=== PATIENT | female | born 1975 | race Caucasian/White ===

== ENCOUNTER 2016-08-17 07:30 | Inpatient (IN) | payer OTHER ==
--- NOTE | ~2016-08-17 | BMI ---
[facility] Nutrition Therapy DATE: 08/18/16 Patient: JUSTINA MENDEZ Physician: JOSE MARIA Address: [address] [place] [address] Room/Bed: [address] [place] [address], [facility], Zip: [place] [address] Admit Date: 08/17/16 Date of : [birth year] Height: 5 2 Weight: 277 125.8 HIGH BMI NOTE: DX: 41 y/o female admitted with COPD exacerbation ANTHROPOMETRICS: Ht: 62", Wt: 277 lbs, BMI: 53 DIET: Regular INTERVENTION: 1. Restricted diet, 2. Meds/fluids per MD RECOMMENDATIONS: Consider changing diet to healthy heart to promote a gradual weight loss towards a healthy BMI range. Respectfully, Annette Pina RD, LD [employer] [facility] [employer] [facility] cc: client file
--- NOTE | ~2016-08-17 | CR72 ---
[facility] A Service of [facility] RADIOLOGY TEXT RESULTS PATIENT: JUSTINA MENDEZ LOCATION: [place] [id number] : [birth year] UNIT #: [id number] AGE: [address]: Fred Jean MD SEX: F ORDER DR: [id number] [facility] [address] [facility]. [place], [place] [address] [id number] I MR#: [id number] Acc #: [id number] NAME: JUSTINA MENDEZ : 1975 SEX: F STUDY DATE/TIME: 08/17/2016 6:54 UNIT: CEDOF ROOM: 54887 STUDY DESCRIPTION: CR Chest Single View Portable Attending Physician: Elio Jean M.D. Ordering Physician: Vadim Guallpa D.O. Primary Care Physician: No Primary Care Physician MEDICAL IMAGING REPORT This report is preliminary unless electronic signature is present EXAM AP portable chest 08/17/2016 HISTORY 41-year-old female in the ED complaining of 2-day history of shortness of air, cough and body aches. TECHNIQUE AP portable chest x-ray. FINDINGS Heart size and pulmonary vascularity are normal. The lungs are expanded and clear. No visible pulmonary infiltrate or pleural effusion. No change since 04/09/2016. IMPRESSION No active disease. No change since 04/09/2016. Dictated by... Scott Barton M.D. THIS IS AN ELECTRONICALLY VERIFIED REPORT Scott Barton M.D. at 08/17/2016 4:12 PM RIRI/sanket TD: 08/17/2016 11:01 JOB #: [id number] MEDICAL IMAGING REPORT COPY
--- NOTE | ~2016-08-17 | HP ---
Unit #: [id number] #: [id number] Patient: ALEXANDRIA MENDEZ [id number] [address] [place], [place] [address] [id number] I MR#: [id number] NAME: ALEXANDRIA MENDEZ ROOM: 16037 Age: 41 Sex: F Admission Date: 08/17/2016 : 1975 Attending Physician: Elio Jean M.D. Primary Care Physician: No Primary Care Physician HISTORY AND PHYSICAL HISTORY OF PRESENT ILLNESS Ms. Alexandria Mendez is a lady who sees us in the office. She has a history of COPD and LAVINIA. Patient presents with two days of persistent sore throat, productive cough, worsening dyspnea. Muscle aches and pains are better, just sinus pain. There is sore throat. There is coughing, sneezing. She has clear drainage from the upper respiratory tract and she is coughing stuff from the lower respiratory tract. The patient is feeling dizzy and has sinus issues; however, there is no significant other symptoms. REVIEW OF SYSTEMS A 12-point review of systems is as above. PAST MEDICAL HISTORY 1. Obstructive sleep apnea. 2. Mathis's palsy. 3. History of transient ischemic episodes. PAST SURGICAL HISTORY 1. Tonsillectomy. 2. Tubal ligation. ALLERGIES The patient has no known medical allergies. HOME MEDICATIONS 1. Albuterol sulfate neb 3 mL every four hours as needed. 2. Aspirin 81 mg daily. FAMILY HISTORY Noncontributory. SOCIAL HISTORY The patient is a nondrinker, nonpolysubstance user. However, is a smoker and had quit approximately six years ago and restarted this year. PHYSICAL EXAMINATION VITAL SIGNS: Blood pressure 146/77, heart rate 96, respiratory rate 16, temperature 98.1. HEENT: Extraocular movements are intact. CHEST: Clear to auscultation bilaterally. CARDIOVASCULAR: Regular rate. No gallop. ABDOMEN: Soft, nontender, nondistended. EXTREMITIES: Shows +1, +2 edema. Unit #: [id number] #: [id number] Patient: ALEXANDRIA MENDEZ DIAGNOSTIC STUDIES LABORATORY: The laboratory data shows no significant leukocytosis. There is also no evidence of renal insufficiency. IMAGING: The chest x-ray shows no evidence of disease and some chronic changes. CARDIOVASCULAR: The EKG shows normal sinus rhythm. ASSESSMENT 1. History of asthma. 2. Acute bronchitis. 3. Acute rhinosinusitis. 4. Acute on chronic respiratory failure, hypoxic type. 5. Obstructive sleep apnea. PLAN 1. Steroids. 2. Antibiotics. 3. DuoNebs scheduled. 4. Patient to be transferred to telemetry bed, two to three days of admission. 5. Improve oxygenation, supplemental oxygen. 6. Try to get viral respiratory swab and a sputum culture to get us our etiology for this acute bronchitis/asthma/chronic obstructive pulmonary disease exacerbation. Dictated by Mayra Mckeon TD: 08/17/2016 15:01 JOB #: [id number] HISTORY AND PHYSICAL X Fred Jean MD X HISTORY AND PHYSICAL
--- NOTE | ~2016-08-17 | EKG ---
PATIENT: JUSTINA MENDEZ UNIT #: [id number] Ventricular Rate: 85 BPM Atrial Rate: 85 BPM P-R Interval: 158 ms QRS Duration: 90 ms Q-T Interval: 392 ms QTC Calculation(Bezet): 466 ms P [place]: 58 degrees Calculated R [place]: 61 degrees Calculated T [place]: 23 degrees Diagnosis Line: Normal sinus rhythm Diagnosis Line: Normal ECG Diagnosis Line: When compared with ECG of 11-APR-2016 08:30, Diagnosis Line: Nonspecific T wave abnormality has replaced Diagnosis Line: inverted T waves in Inferior leads Diagnosis Line: Confirmed by ANDIE ESCAMILLA MD ([id number]) on 08/18/2016 Diagnosis Line: 5:38:40 PM INTERPRETING MD: FRANCINE ZUNIGA
--- NOTE | ~2016-08-17 | DS ---
Unit #: [id number] #: [id number] Patient: JUSTINA MENDEZ [id number] [address] [place], [place] [address] [id number] I MR#: [id number] NAME: JUSTINA MENDEZ ROOM: 341 Age: 41 Sex: F Admission Date: 08/17/2016 : 1975 Discharge Date: 08/21/2016 Attending Physician: Eilo Jean M.D. Primary Care Physician: No Primary Care Physician DISCHARGE SUMMARY FINAL DIAGNOSES 1. Acute exacerbation of asthma/chronic obstructive pulmonary disease. 2. Obstructive sleep apnea, not compliant. 3. Acute bronchitis. 4. Obesity. 5. Tobacco dependence. Ms. Mendez is a 41-year-old female with a history of asthma who presented with increasing shortness of air. She states she had quit smoking and then started smoking again. She apparently has BiPAP or CPAP at home but hadn't been using it. She has significant expiratory wheezes that took a few days to clear or even get better. As of 08/20/16, she was sounding better with some expiratory wheezes but I suspect this is an improvement. It is notable that she had a CBC on the with a white count of 19,000 but this is likely on the basis of steroids. Surprisingly, her sugars really haven't been that high with a glucose of 136 on the despite the steroids. Because she is improving, I will stop Rocephin. She had chest x-ray on the that really didn't show any definite infiltrate anyway. Sputum culture was sent from the and really all we got was a throat culture from the which didn't show any group A Strep. Therefore, really don't have any positive cultures. She will be discharged on the following medicines: 1. Zithromax 500 mg p.o. daily x6 days. 2. Symbicort 160/4.5, two puffs b.i.d. 3. ProAir HFA two puffs q.4 p.r.n. 4. Prednisone 30 mg p.o. daily, decreasing by 10 mg every three days. 5. She will get a Depo-Medrol on the morning of 08/21/2016 before she leaves. 6. She has had some headaches and she has been given some ibuprofen and she apparently did get some Fioricet but I do not plan on writing that when she leaves. She should follow up with her primary doc. She can follow up with Dr. Jean in the office. Dictated by... Mayra Savage Unit #: [id number] #: [id number] Patient: JUSTINA MENDEZ TD: 08/22/2016 08:50 JOB #: [id number] DISCHARGE SUMMARY X Mau Dunaway MD X DISCHARGE SUMMARY
[2016-08-17 06:52] LABS: INFLUENZA A NEG (NEG); INFLUENZA B NEG (NEG)
[2016-08-17 07:20] LABS: BASOPHIL# 0.1 X10e3 (0-0.3); EOSINOPHIL# 0.5 X10e3 (0-0.7); EOSINOPHIL% 3.9 % (0.0-7.0); HEMOGLOBIN 13.5 gm/dL (12.0-16.0); LYMPHOCYTE# 1.2 X10e3 (1.0-3.5); LYMPHOCYTE% 9.6 % (17.0-45.0); MEAN CELL VOLUME 84.5 FL (83-96); MEAN CORPUSCULAR HEMOGLOBIN 27.7 PG (28-34); MEAN CORPUSCULAR HGB CONC 32.8 g/dL (30-36); MONOCYTE# 0.7 X10e3 (0-1.0); MONOCYTE% 5.4 % (3.0-12.0); NEUTROPHIL# 9.7 X10e3 (1.5-7.1); NEUTROPHIL% 80.1 % (40-75); PLATELET COUNT 211 X10e3 (140-420); RED BLOOD COUNT 4.85 X10e (3.90-5.30); RED CELL DISTRIBUTION WIDTH 15.7 % (11.0-15.5); WHITE BLOOD COUNT 12.1 X10e3 (4.0-10.5)
[2016-08-17 07:28] LABS: DIFF IND NO
[~2016-08-17 07:30] MED LIST: ALBUTEROL MININEB NEB; ALBUTEROL0.63 MG/3 INH; ALL DAY ALLERGY10 M3 PO; ASPIRIN PO; ASPIRIN81 M2 PO; ASPIRIN81 MG PO; AUGMENTIN875 MG PO; BAYER CHEWABLE81 MG PO; CLARITIN10 M3 PO; COMBIVENT MININEB INH; FLONASE 0.05% N16 G1; NASONEX17 GM; PHENERGAN PO; PREDNISONE10 MG/DOSE PO; PREDNISONE50 MG PO; QVAR7.3 G1 IH; SYMBICORT 80-10.2 GM INH; VICODIN 5/500 T1 TAB PO; VICODIN PO; ZITHROMAX PO
[2016-08-17 07:45] LABS: BLOOD UREA NITROGEN 8 mg/dL (9-23); BUN/CREATININE RATIO 13.33; CALCIUM SERUM 8.3 mg/dL (8.4-10.2); CARBON DIOXIDE 25 mmol/L (22-31); CHLORIDE 106 mmol/L (100-111); CREATININE SERUM 0.6 mg/dL (0.6-1.4); GLOM FILT RATE Estimated ABOVE60 mL/min (>60); GLUCOSE FASTING 115 mg/dL (70-110); POTASSIUM 3.6 mmol/L (3.5-5.1); SODIUM 137 mmol/L (135-145)
[2016-08-17 09:05] LABS: POC - CKMB <1.0 ng/mL (0.0-7.9); POC - TROPONIN <0.05 ng/mL (<=0.05)
[2016-08-18 07:11] LABS: AMPHETAMINE NEG (NEG); BARBITURATES NEG (NEG); BENZODIAZEPINES NEG (NEG); COCAINE NEG (NEG); MARIJUANA POS (NEG); OPIATES NEG (NEG); TRICYCLIC ANTIDEPRESSANTS NEG (NEG); U METHADONE NEG (NEG)
[2016-08-19 06:27] LABS: HEMOGLOBIN 12.2 gm/dL (12.0-16.0); MEAN CELL VOLUME 84.9 FL (83-96); MEAN CORPUSCULAR HEMOGLOBIN 27.4 PG (28-34); MEAN CORPUSCULAR HGB CONC 32.2 g/dL (30-36); MEAN PLATELET VOLUME 9.4 FL (6.5-11.5); RED BLOOD COUNT 4.47 X10e (3.90-5.30); RED CELL DISTRIBUTION WIDTH 15.8 % (11.0-15.5)
[2016-08-19 06:33] LABS: WHITE BLOOD COUNT 19.3 X10e3 (4.0-10.5)
[2016-08-19 07:03] LABS: ALBUMIN SERUM 3.2 g/dL (3.5-5.0); ALKALINE PHOSPHATASE 76 U/L (32-92); ALT (SGPT) 14 U/L (10-40); AST (SGOT) 17 U/L (10-42); BILIRUBIN,TOTAL 0.3 mg/dL (0.2-2.0); BLOOD UREA NITROGEN 18 mg/dL (9-23); CALCIUM SERUM 8.6 mg/dL (8.4-10.2); CARBON DIOXIDE 23 mmol/L (22-31); CHLORIDE 108 mmol/L (100-111); CREATININE SERUM 0.5 mg/dL (0.6-1.4); GLOM FILT RATE Estimated ABOVE60 mL/min (>60); GLUCOSE FASTING 136 mg/dL (70-110); POTASSIUM 3.7 mmol/L (3.5-5.1); PROTEIN TOTAL SERUM 6.2 g/dL (6.0-8.3); SODIUM 140 mmol/L (135-145)
[2016-08-21 06:48] LABS: HEMATOCRIT 37.1 % (35.0-45.0); MEAN CELL VOLUME 85.1 FL (83-96); MEAN CORPUSCULAR HEMOGLOBIN 27.5 PG (28-34); MEAN CORPUSCULAR HGB CONC 32.3 g/dL (30-36); RED BLOOD COUNT 4.36 X10e (3.90-5.30); RED CELL DISTRIBUTION WIDTH 16.1 % (11.0-15.5); WHITE BLOOD COUNT 12.4 X10e3 (4.0-10.5)
[2016-08-21] MEDS ORDERED: ZITHROMAX PO (11:22)
[2016-08-21] MEDS ORDERED: PREDNISONE10 MG/DOSE PO (11:24)
[2016-08-21] MEDS ORDERED: PROAIR HFA8.5 GM INH (11:28)
[2016-08-21] MEDS ORDERED: SYMBICORT80 INH (11:30)
[2016-08-21] MEDS ORDERED: LOVENOX40 MG/0.4 INJ (11:34)
== END 2016-08-21 12:52 | disposition home or self-care (01) | DRG 202 ==
LOC: CED 07:30 → CEDOF 10:00 → C3A PCU 15:12
PROVIDERS: Emergency Medicine; Internal Medicine Pulmonary Disease
DX: J45.901 Unspecified asthma with (acute) exacerbation (principal); J96.21 Acute and chronic respiratory failure with hypoxia; J44.0 Chronic obstructive pulmonary disease with (acute) lower respiratory infection; J44.1 Chronic obstructive pulmonary disease with (acute) exacerbation; Z68.43 Body mass index [BMI] 50.0-59.9, adult; J20.9 Acute bronchitis, unspecified; F17.210 Nicotine dependence, cigarettes, uncomplicated; G47.33 Obstructive sleep apnea (adult) (pediatric); Z91.19 Patient's noncompliance with other medical treatment and regimen; G51.0 Bell's palsy; R51 Headache; Z86.73 Personal history of transient ischemic attack (TIA), and cerebral infarction without residual deficits; E66.9 Obesity, unspecified; Z79.82 Long term (current) use of aspirin
CPT/HCPCS: 36415; 71010; 80048; 80053; 80307; 82553; 82947; 84484; 85025; 85027; 87070; 87205; 87651; 87804; 93005; 94640; 94664; 94760; 96361; 96374; 99285; J0456; J0696; J1040; J1650; J2930

== ENCOUNTER 2016-12-31 15:37 | Emergency (ER) | payer OTHER ==
[~2016-12-31 15:37] MED LIST changes: +LOVENOX40 MG/0.4 INJ; +PROAIR HFA8.5 GM INH; +SYMBICORT80 INH
== END 2016-12-31 16:24 | disposition home or self-care (01) ==
LOC: CFTX 15:37 → CED 15:37 → CFTX 16:22
DX: M54.41 Lumbago with sciatica, right side (principal); J44.9 Chronic obstructive pulmonary disease, unspecified; F17.210 Nicotine dependence, cigarettes, uncomplicated
CPT/HCPCS: 99283

== ENCOUNTER 2017-01-03 06:53 | Emergency (ER) | payer OTHER ==
[~2017-01-03] VITALS: Ht 165.1 cm; Wt 126.8 kg
--- NOTE | ~2017-01-03 | CR151 ---
[facility] A Service of [facility] RADIOLOGY TEXT RESULTS PATIENT: JUSTINA MENDEZ LOCATION: [place] : [birth year] UNIT #: [id number] AGE: [address]: Gisela Courtney APRN SEX: F ORDER DR: [id number] [facility] [address] [facility]. [place], [place] [address] [id number] E MR#: [id number] Acc #: [id number] NAME: JUSTINA MENDEZ : 1975 SEX: F STUDY DATE/TIME: 01/03/2017 7:50 UNIT: [place] ROOM: STUDY DESCRIPTION: CR Hip Min 2 Views Rt Attending Physician: Gisela Courtney A.P.R.N. Ordering Physician: Dong Roper M.D. Primary [facility] Phys[facility]: [facility] MEDICAL IMAGING REPORT This report is preliminary unless electronic signature is present EXAM AP pelvis with frog view of the right hip DATE 01/03/2017 HISTORY Low back pain and right hip pain radiating to the right leg for 2 weeks. No known injury. COMPARISON None. FINDINGS Study is attenuated by body habitus. No pelvic fracture hip fracture hip dislocation is seen. Hip joint spaces appear well preserved without significant osteoarthritic change. No sacroiliac joint or pubic symphysis diastasis is seen. Imaged lower lumbar spine appears unremarkable. IMPRESSION 1. Normal pelvis and right hip. Dictated by... Nora Richard M.D. THIS IS AN ELECTRONICALLY VERIFIED REPORT Nora Richard M.D. at 01/04/2017 11:56 AM LLRemi/jose TD: 01/03/2017 13:51 JOB #: [id number] [facility] A Service [facility] RADIOLOGY TEXT RESULTS PATIENT: JUSTINA MENDEZ LOCATION: [place] : [birth year] UNIT #: [id number] AGE: [address]: Gisela Courtney APRN SEX: F ORDER DR: MEDICAL IMAGING REPORT Page 1 of 1 COPY
--- NOTE | ~2017-01-03 | CR181 ---
[facility] A Service of [facility] RADIOLOGY TEXT RESULTS PATIENT: JUSTINA MENDEZ LOCATION: [facility] : [birth year] UNIT #: [id number] AGE: [address]: Gisela Courtney APRN SEX: F ORDER DR: [id number] [facility] [address] [facility]. [place], [place] [address] [id number] E MR#: [id number] Acc #: [id number] NAME: JUSTINA MENDEZ : 1975 SEX: F STUDY DATE/TIME: 01/03/2017 7:51 UNIT: [facility] ROOM: STUDY DESCRIPTION: CR Lumbar Spine 2 or 3 Views Attending Physician: Gisela Courtney A.P.R.N. Ordering Physician: Ed Eduardo Roper M.D. Primary Care Physician: [facility] MEDICAL IMAGING REPORT This report is preliminary unless electronic signature is present EXAMINATION Three views of the lumbar spine. DATE 01/03/2017 HISTORY Low back pain and right hip pain radiating to the right leg for 2 weeks. No known injury. COMPARISON None. FINDINGS No fracture. No subluxation. Disc space height appears preserved. No osteolytic or osteoblastic abnormalities identified. Slight thoracolumbar junction curvature toward the left is nonspecific and may be positional. Study is attenuated by body habitus. IMPRESSION 1. Normal lumbar spine series. Dictated by... Nora Richard M.D. THIS IS AN ELECTRONICALLY VERIFIED REPORT Nora Richard M.D. at 01/04/2017 11:56 AM PATO/avinash TD: 01/03/2017 13:34 JOB #: [id number] MEDICAL IMAGING REPORT [facility] A Service of [facility] RADIOLOGY TEXT RESULTS PATIENT: JUSTINA MENDEZ LOCATION: [facility] : [birth year] UNIT #: [id number] AGE: [address]: Gisela Courtney APRN SEX: F ORDER DR: Page 1 of 1 COPY
== END 2017-01-03 08:52 | disposition home or self-care (01) ==
LOC: CED 06:53
DX: M54.41 Lumbago with sciatica, right side (principal); R03.0 Elevated blood-pressure reading, without diagnosis of hypertension; J44.9 Chronic obstructive pulmonary disease, unspecified; F17.210 Nicotine dependence, cigarettes, uncomplicated; Z79.82 Long term (current) use of aspirin; Z79.899 Other long term (current) drug therapy
CPT/HCPCS: 72100; 73502; 96372; 99283; J1885